=== PATIENT | female | born 1950 | race Caucasian/White ===

== ENCOUNTER 2024-11-13 15:01 | Inpatient (IN) | payer MEDICARE ==
[~2024-11-13] VITALS: Ht 157.5 cm; Wt 49.0 kg
[2024-11-13] MEDS ORDERED: LORAZEPAM 2 MG/1 ML VIAL ONE ×2 (16:37→18:59)
[2024-11-13] MEDS ORDERED: diphenhydrAMINE 50 MG/1 ML VIAL ONE (16:37)
[2024-11-13] MEDS ORDERED: HALOPERIDOL LACTATE 5 MG/1 ML VIAL ONE (16:37)
[2024-11-13] MEDS: HALOPERIDOL LACTATE 5 MG/1 ML VIAL IM ONE (16:44)
[2024-11-13] MEDS: diphenhydrAMINE 50 MG/1 ML VIAL IM ONE (16:44)
[2024-11-13] MEDS: LORAZEPAM 2 MG/1 ML VIAL IM ONE ×2 (16:44→19:03)
[2024-11-13 19:36] LABS: BASOPHILS # (AUTO) 0.1 K/UL (0.0-0.2); EOSINOPHILS # (AUTO) 0.1 K/uL (0.0-0.7); EOSINOPHILS % (AUTO) 0.9 % (0.0-7.0); HEMATOCRIT 38.1 % (31.2-41.9); HEMOGLOBIN 12.9 g/dL (10.9-14.3); LYMPHOCYTES # (AUTO) 1.9 K/uL (0.8-4.8); LYMPHOCYTES % (AUTO) 34.9 % (20.5-51.5); MEAN CORPUSCULAR HEMOGLOBIN 31.3 uug (24.7-32.8); MEAN CORPUSCULAR HGB CONC 34 g/dL (32.3-35.6); MEAN CORPUSCULAR VOLUME 92.6 fL (75.5-95.3); MONOCYTES # (AUTO) 0.3 K/uL (0.1-1.30); NEUTROPHILS # (AUTO) 3.2 K/uL (1.8-8.9); NEUTROPHILS % (AUTO) 57.2 % (38.5-71.5); PLATELET COUNT (AUTO) 215 K/uL (179-408); RED BLOOD CELL COUNT(AUTO) 4.11 MIL/uL (3.63-4.92); RED CELL DISTRIBUTION WIDTH 13.8 % (12.3-17.7); WHITE BLOOD COUNT (AUTO) 5.6 K/uL (3.8-11.8)
[2024-11-13 19:44] LABS: CALCIUM 8.6 mg/dL (8.5-10.1); CARBON DIOXIDE 28 mmol/L (21-32); CHLORIDE 104 mmol/L (98-107); GLUCOSE 184 mg/dL (74-106); POTASSIUM 3.7 mmol/L (3.5-5.1); SODIUM SERUM 140 mmol/L (136-145); UREA NITROGEN, BLOOD 39 mg/dL (7-18)
[2024-11-13 19:46] LABS: DIFFERENTIAL COMMENT 1
[2024-11-13 19:54] LABS: ALANINE AMINOTRANSFERASE 33 U/L (14-59); ALBUMIN 3.4 g/dL (3.4-5.0); ALKALINE PHOSPHATASE 85 U/L (50-136); ASPARTATE AMINOTRANSFERASE 17 U/L (15-37); BILIRUBIN,DIRECT 0.1 mg/dL (0.0-0.2); BILIRUBIN,TOTAL 0.3 mg/dL (0.2-1.0); TOTAL PROTEIN, SERUM 6.7 g/dL (6.4-8.2)
[2024-11-13 19:55] LABS: ETHANOL < 3 MG/DL (0-10)
[2024-11-13 20:15] LABS: *BILIRUBIN,URIN NEGATIVE (NEGATIVE); *BLOOD, URINE NEGATIVE (NEGATIVE); *CLARITY,URINE CLEAR (CLEAR); *COLOR,URINE YELLOW (YELLOW); *KETONES,URINE NEGATIVE (NEGATIVE); *PROTEIN,URINE NEGATIVE (NEGATIVE); *UROBILINOGEN,URINE 0.2 E.U./dl (NORMAL); LEUKOCYTE ESTERASE ,URINE NEGATIVE (NEGATIVE); NITRITE, URINE NEGATIVE (NEGATIVE); PH,URINE 6.5 (5.0-8.0); UGLUCOSE NEGATIVE (NEGATIVE)
[2024-11-13 20:45] LABS: *AMPHETAMINE, URINE NEGATIVE (NEGATIVE); *BARBITURATE, URINE NEGATIVE (NEGATIVE); *BENZODIAZEPINE, URINE NEGATIVE (NEGATIVE); *CANNABINOID, URINE NEGATIVE (NEGATIVE); *COCCAINE, URINE NEGATIVE (NEGATIVE); *OPIATE, URINE NEGATIVE (NEGATIVE); *PHENCYCLIDINE SCREEN,URINE NEGATIVE (NEGATIVE); FENTANYL, URINE NEGATIVE (NEGATIVE)
[2024-11-14] MEDS ORDERED: ALPR0.5T8 PO (05:04)
[2024-11-14] MEDS ORDERED: ESCI20TA44 PO (05:04)
[2024-11-14] MEDS ORDERED: BUPR150T5 PO (05:04)
[2024-11-14] MEDS ORDERED: CLOP75TA15 PO (05:04)
[2024-11-14] MEDS ORDERED: OMEP20TA5 PO (05:04)
[2024-11-14] MEDS ORDERED: ATOR40TA PO (05:04)
[2024-11-14] MEDS ORDERED: ASPI81TA31 PO (05:04)
[2024-11-14] MEDS ORDERED: LISI-782 PO (05:04)
[2024-11-14] MEDS ORDERED: LORAZEPAM 0.5 MG TABLET PO PRN ×3 (06:00→09:15)
[2024-11-14] MEDS ORDERED: MAG HYDROX/AL HYDROX/SIMETH 30 ML LIQUID UDC PO PRN (06:00)
[2024-11-14] MEDS ORDERED: ZOLPIDEM 5 MG TABLET PO PRN (06:00)
[2024-11-14] MEDS: BLOOD SUGAR DIAGNOSTIC 1 EACH STRIP VI ONE (06:31)
[2024-11-14 06:35] VITALS: BP 120/70; TEMP 98.1; O2SAT 97
[2024-11-14] MEDS ORDERED: OMEP20CA15 PO (07:46)
[2024-11-14] MEDS ORDERED: FERR-68 PO (07:47)
[2024-11-14 08:16] VITALS: BP 103/47; TEMP 97.5; O2SAT 18; O2SAT 97
[2024-11-14] MEDS ORDERED: LORAZEPAM 1 MG TABLET PO PRN (09:45)
[2024-11-14 16:14] VITALS: BP 103/49; TEMP 97.5; O2SAT 100
[2024-11-14 20:00] VITALS: BP 86/56; TEMP 97.6; O2SAT 94
[2024-11-14] MEDS: FLUVOXAMINE MALEATE 50 MG TABLET PO SCH (21:49)
[2024-11-14] MEDS: ALPRAZOLAM 0.5 MG TABLET PO SCH (21:49)
[2024-11-15] MEDS: ENSURE ENLIVE (VAN) 240 ML LIQUID PO SCH (09:00)
[2024-11-15] MEDS ORDERED: OMEP40CA21 PO (11:45)
[2024-11-15 12:15] VITALS: BP 115/69; TEMP 97.3; O2SAT 96
[2024-11-15] MEDS: ASPIRIN 81 MG TAB.CHEW PO SCH (12:34)
[2024-11-15] MEDS: CLOPIDOGREL 75 MG TABLET PO SCH (12:34)
[2024-11-15] MEDS: LISINOPRIL 5 MG TABLET PO SCH (12:34)
[2024-11-15] MEDS: FERROUS SULFATE 325 MG TABEC PO SCH (12:34)
[2024-11-15 16:14] VITALS: BP 114/71; TEMP 97.6; O2SAT 100
[2024-11-15 20:00] VITALS: BP 105/61; TEMP 97.7; O2SAT 97
[2024-11-15] MEDS: ATORVASTATIN 40 MG TABLET PO SCH (20:32)
[2024-11-16] MEDS: PANTOPRAZOLE SODIUM 40 MG TABLET.DR PO SCH (07:06)
[2024-11-16 10:15] VITALS: BP 111/65; TEMP 97.6; O2SAT 95
[2024-11-16 16:08] VITALS: BP 118/71; TEMP 98.3; O2SAT 98
[2024-11-16 19:49] VITALS: BP 97/63; TEMP 98.2; O2SAT 96
[2024-11-17 08:10] VITALS: BP 121/79; TEMP 98.2; O2SAT 99
[2024-11-17] MEDS ORDERED: BISACODYL 5 MG TABLET.DR PO PRN (09:00)
[2024-11-17] MEDS: BISACODYL 5 MG TABLET.DR PO PRN (09:12)
[2024-11-17 16:14] VITALS: BP 112/59; TEMP 98.2; O2SAT 100
[2024-11-17 20:00] VITALS: BP 121/67; TEMP 98.2; O2SAT 99
[2024-11-17] MEDS: FLUVOXAMINE MALEATE 50 MG TABLET PO SCH (20:40)
[2024-11-17] MEDS: MAGNESIUM HYDROXIDE 30 ML LIQUID UDC PO PRN (21:23)
[2024-11-17] MEDS: TEMAZEPAM 7.5 MG CAPSULE PO PRN (23:08)
[2024-11-18 07:57] VITALS: BP 129/71; TEMP 98; O2SAT 100
[2024-11-18 15:54] VITALS: BP 100/60; TEMP 98.2; O2SAT 99
[2024-11-18 20:00] VITALS: BP 93/73; TEMP 97.9; O2SAT 95
[2024-11-18] MEDS: BISACODYL 5 MG TABLET.DR PO SCH (20:27)
[2024-11-18] MEDS: ACETAMINOPHEN 325 MG TABLET PO PRN (20:27)
[2024-11-19 07:59] VITALS: BP 101/67; TEMP 98; O2SAT 99
[2024-11-19 08:49] VITALS: BP 101/67
== END 2024-11-19 11:30 | disposition home or self-care (01) | DRG 880 ==
LOC: ER 15:01 → GPS 11-14 05:38
PROVIDERS: ADMIT Psychiatry & Neurology Psychiatry; ATTEND Nurse Practitioner Acute Care
DX: F41.9 Anxiety disorder, unspecified (principal); F31.81 Bipolar II disorder; F42.9 Obsessive-compulsive disorder, unspecified; Z79.899 Other long term (current) drug therapy; Z86.73 Personal history of transient ischemic attack (TIA), and cerebral infarction without residual deficits; Z79.02 Long term (current) use of antithrombotics/antiplatelets; I10 Essential (primary) hypertension
CPT/HCPCS: 36415; 83735; 85025; G0480; J1200; J1630; J2060

== ENCOUNTER 2025-06-11 07:30 | Inpatient (IN) | payer MEDICARE, OTHER ==
[~2025-06-11] VITALS: Ht 157.5 cm; Wt 48.5 kg
[~2025-06-11 07:30] MED LIST: ASPI81TA31 PO; ATOR40TA PO; CLOP75TA15 PO; FERR-68 PO; LISI-782 PO; OMEP40CA21 PO
[2025-06-11 08:54] LABS: PLATELET COUNT (AUTO) 231 K/uL (179-408); RED BLOOD CELL COUNT(AUTO) 4.00 MIL/uL (3.63-4.92); RED CELL DISTRIBUTION WIDTH 14.2 % (12.3-17.7); WHITE BLOOD COUNT (AUTO) 4.2 K/uL (3.8-11.8)
[2025-06-11 08:56] LABS: CREATININE 0.8 mg/dL (0.6-1.3); SODIUM SERUM 136 mmol/L (136-145); UREA NITROGEN, BLOOD 20 mg/dL (7-18)
[2025-06-11 08:58] LABS: ETHANOL < 3 MG/DL (0-10)
[2025-06-11 09:01] LABS: ASPARTATE AMINOTRANSFERASE 18 U/L (15-37); TOTAL PROTEIN, SERUM 7.0 g/dL (6.4-8.2)
[2025-06-11 09:16] LABS: *BILIRUBIN,URIN NEGATIVE (NEGATIVE); *BLOOD, URINE NEGATIVE (NEGATIVE); *CLARITY,URINE CLEAR (CLEAR); *COLOR,URINE YELLOW (YELLOW); *KETONES,URINE NEGATIVE (NEGATIVE); *PROTEIN,URINE NEGATIVE (NEGATIVE); *UROBILINOGEN,URINE 0.2 E.U./dl (NORMAL); LEUKOCYTE ESTERASE ,URINE 1+ (NEGATIVE); NITRITE, URINE NEGATIVE (NEGATIVE); UGLUCOSE NEGATIVE (NEGATIVE)
[2025-06-11 09:29] LABS: SQUAMOUS EPITHELIAL CELL,UR FEW /HPF (NONE SEEN)
[2025-06-11 12:10] VITALS: BP 126/76
[2025-06-11] MEDS: BLOOD SUGAR DIAGNOSTIC 1 EACH STRIP VI ONE (14:58)
[2025-06-11] MEDS ORDERED: FLUV25TA3 PO (15:18)
[2025-06-11] MEDS ORDERED: ALPR0.5T8 PO (15:18)
[2025-06-11 15:44] VITALS: BP 127/77; TEMP 98; O2SAT 100
[2025-06-11] MEDS ORDERED: LORAZEPAM 1 MG TABLET PO PRN ×2 (15:45→16:00)
[2025-06-11] MEDS ORDERED: ZOLPIDEM 5 MG TABLET PO PRN ×2 (15:45→16:00)
[2025-06-11] MEDS ORDERED: MAG HYDROX/AL HYDROX/SIMETH 30 ML LIQUID UDC PO PRN (15:45)
[2025-06-11] MEDS ORDERED: ACETAMINOPHEN 325 MG TABLET PO PRN (15:45)
[2025-06-11] MEDS ORDERED: MAGNESIUM HYDROXIDE 30 ML LIQUID UDC PO PRN (15:45)
[2025-06-11 19:55] VITALS: BP 100/51; TEMP 98.1; O2SAT 99
[2025-06-11] MEDS: ATORVASTATIN 40 MG TABLET PO SCH (20:48)
[2025-06-12] MEDS: PANTOPRAZOLE SODIUM 40 MG TABLET.DR PO SCH (06:21)
[2025-06-12 07:46] LABS: ASPARTATE AMINOTRANSFERASE 19 U/L (15-37); CREATININE 0.9 mg/dL (0.6-1.3); SODIUM SERUM 141 mmol/L (136-145); TOTAL PROTEIN, SERUM 7.5 g/dL (6.4-8.2); UREA NITROGEN, BLOOD 20 mg/dL (7-18)
[2025-06-12 07:48] VITALS: BP 114/58; TEMP 98.2; O2SAT 99
[2025-06-12] MEDS: FERROUS SULFATE 325 MG TABEC PO SCH (08:57)
[2025-06-12] MEDS: LISINOPRIL 5 MG TABLET PO SCH (08:57)
[2025-06-12] MEDS: ASPIRIN 81 MG TAB.CHEW PO SCH (08:58)
[2025-06-12] MEDS: CLOPIDOGREL 75 MG TABLET PO SCH (08:58)
[2025-06-12] MEDS ORDERED: HYDROXYZINE PAMOATE 25 MG CAPSULE PO PRN (09:00)
[2025-06-12 15:13] VITALS: BP 104/50; TEMP 98.2; O2SAT 99
[2025-06-12 19:28] VITALS: BP 116/89; TEMP 98.1; O2SAT 99
[2025-06-12] MEDS: ALPRAZOLAM 0.5 MG TABLET PO SCH (20:30)
[2025-06-12] MEDS: FLUVOXAMINE MALEATE 25 MG TABLET PO SCH (20:31)
[2025-06-13 08:16] VITALS: BP 92/57; TEMP 98; O2SAT 98
[2025-06-13] MEDS: MIRALAX 17 GM POWD.PACK PO SCH (09:00)
[2025-06-13 15:06] VITALS: BP 94/46; TEMP 98; O2SAT 99
[2025-06-13 19:48] VITALS: BP 111/68; TEMP 98.7; O2SAT 100
[2025-06-14 08:04] VITALS: BP 102/58; TEMP 98; O2SAT 99
[2025-06-14 16:22] VITALS: BP 91/54; TEMP 98; O2SAT 99
[2025-06-14 20:00] VITALS: BP 128/77; TEMP 97.7; O2SAT 99
[2025-06-15 08:10] VITALS: BP 122/66; TEMP 98; O2SAT 99
[2025-06-15 16:17] VITALS: BP 96/65; TEMP 98; O2SAT 99
[2025-06-15 20:00] VITALS: BP 103/70; TEMP 98.6; O2SAT 99
[2025-06-16 08:54] VITALS: BP 101/57; TEMP 98; O2SAT 99
[2025-06-16 20:00] VITALS: BP 130/69; TEMP 98.2; O2SAT 98
[2025-06-17 08:21] VITALS: BP 109/68; TEMP 97.7; O2SAT 97
[2025-06-17 17:26] VITALS: BP 100/56; TEMP 98.4; O2SAT 99
[2025-06-17 20:08] VITALS: BP 103/49; TEMP 98.8; O2SAT 97
[2025-06-18 07:46] VITALS: BP 136/58; TEMP 98; O2SAT 99
[2025-06-18 08:42] VITALS: BP 136/58
== END 2025-06-18 11:15 | disposition home or self-care (01) | DRG 880 ==
LOC: ER 07:30 → GPS 13:16
PROVIDERS: ADMIT Psychiatry & Neurology Psychiatry
DX: F41.9 Anxiety disorder, unspecified (principal); I69.354 Hemiplegia and hemiparesis following cerebral infarction affecting left non-dominant side; Z68.1 Body mass index [BMI] 19.9 or less, adult; E44.0 Moderate protein-calorie malnutrition; F42.9 Obsessive-compulsive disorder, unspecified; E78.5 Hyperlipidemia, unspecified; G89.29 Other chronic pain; M19.90 Unspecified osteoarthritis, unspecified site; R62.7 Adult failure to thrive; I10 Essential (primary) hypertension; Z96.642 Presence of left artificial hip joint; Z73.6 Limitation of activities due to disability; F31.81 Bipolar II disorder; S80.11XA Contusion of right lower leg, initial encounter; X58.XXXA Exposure to other specified factors, initial encounter; Y93.9 Activity, unspecified; Y92.009 Unspecified place in unspecified non-institutional (private) residence as the place of occurrence of the external cause
CPT/HCPCS: 36415; 70450; 71045; 72170; 73521; 73590; 84443; 84484; 85025; 85730; 87086; A4606; A4663; G0480; Q0163